=== PATIENT | male | born 1960 | race Caucasian/White ===

== ENCOUNTER 2020-03-13 09:22 | Observation (INO) | payer BC, OTHER ==
[2020-02-29 12:01] LABS: BASOPHILS # (AUTO) 0.1 (0.0-0.1); BASOPHILS % 0.4 % (0.0-1.0); EOSINOPHILS # (AUTO) 0.1 (0.0-0.4); EOSINOPHILS % 0.8 % (0.0-6.0); HEMATOCRIT 43.1 % (38.2-49.6); HEMOGLOBIN 13.8 g/dL (14.0-18.0); LYMPHOCYTES # (AUTO) 1.4 (1.0-3.2); LYMPHOCYTES % 11.5 % (18.0-39.1); MEAN CORPUSCULAR HEMOGLOBIN 28.8 pg (28-32); MEAN CORPUSCULAR VOLUME 89.8 fL (81-99); MONOCYTES # (AUTO) 1.3 (0.2-0.8); MONOCYTES % 10.3 % (4.4-11.3); NEUTROPHILS # (AUTO) 9.4 (2.1-6.9); NEUTROPHILS % 76.6 % (38.7-80.0); PLATELET COUNT 290 x10e3/uL (140-360); RED CELL DISTRIBUTION WIDTH 13.1 % (11.7-14.4)
[2020-02-29 12:24] LABS: PARTIAL THROMBOPLASTIN TIME 34.7 seconds (23.8-35.5)
[2020-02-29 12:29] LABS: INR 1.22; PROTHROMBIN TIME 16.1 seconds (11.9-14.5)
[2020-02-29 12:31] LABS: ANION GAP 16.9 mmol/L (8-16); BLOOD UREA NITROGEN 23 mg/dL (7-26); BUN/CREATININE RATIO 21 (6-25); CALCIUM 9.6 mg/dL (8.4-10.2); CARBON DIOXIDE 25 mmol/L (22-29); CHLORIDE 102 mmol/L (98-107); CREATININE, SERUM 1.08 mg/dL (0.72-1.25); EST GLOMERULAR FILTRATION RATE > 60 ML/MIN (60-); GLUCOSE 90 mg/dL (74-118); POTASSIUM 3.9 mmol/L (3.5-5.1); SODIUM 140 mmol/L (136-145)
--- NOTE | 2020-02-29 12:44 | Diagnostic Imaging Report ---
EXAMINATION: CHEST 2 VIEWS INDICATION: Pre-operative COMPARISON: None FINDINGS: LINES/TUBES:Right and left subclavian vascular stents. LUNGS:The lungs are well-inflated. Left lower lung hazy and interstitial opacities. PLEURA:Moderate left layering pleural effusion. MEDIASTINUM:The cardiomediastinal silhouette appears normal in size and shape. Atherosclerotic calcifications of the thoracic aorta. BONES/SOFT TISSUES:No acute osseous injury. Sternotomy wires in place. ABDOMEN:No free air under the diaphragm. IMPRESSION: Layering left pleural effusion. Left lower lung patchy opacities may represent subsegmental atelectasis however superimposed pneumonia could also have this appearance and should be excluded clinically. Signed by: Donnell Berger MD on 02/29/2020 12:41 PM
[2020-03-04 09:53] LABS: PARTIAL THROMBOPLASTIN TIME 35.6 seconds (23.8-35.5)
--- NOTE | 2020-03-04 10:17 | Diagnostic Imaging Report ---
EXAMINATION: CHEST 2 VIEWS INDICATION: Pre-operative COMPARISON: Chest are graft a 30/07/2019 FINDINGS: LINES/TUBES:Right and left subclavian vascular stents. LUNGS:The lungs are well-inflated. Unchanged left lower lung hazy and interstitial opacities. PLEURA:Unchanged left layering pleural effusion. MEDIASTINUM:The cardiomediastinal silhouette appears normal in size and shape. Atherosclerotic calcifications of the thoracic aorta. BONES/SOFT TISSUES:No acute osseous injury. Sternotomy wires in place. ABDOMEN:No free air under the diaphragm. IMPRESSION: Unchanged layering left pleural effusion and left lower lung patchy opacities may represent subsegmental atelectasis however superimposed pneumonia could also have this appearance and should be excluded clinically. Signed by: Donnell Berger MD on 03/04/2020 10:14 AM
[2020-03-04 10:41] LABS: INR 1.02; PROTHROMBIN TIME 13.9 seconds (11.9-14.5)
[~2020-03-13] VITALS: Ht 177.8 cm; Wt 88.9 kg
[~2020-03-13 09:22] MED LIST: ASPIRIN81 MG PO; CRESTOR10 MG PO; ELIQUIS5 MG PO; IBUPROFEN 800MG/ 200ML 200 ML IV ONE; LIDOCAINE HCL (LTA) 4 ML SOLN ONE; OLMESARTAN-HCT1 EAC2 PO; PROTONIX20 MG PO; PROZAC20 MG PO; TRAZODONE HCL50 MG PO
[2020-03-13] MEDS ORDERED: VANCOMYCIN HCL 1 GM VIAL ONE (09:50)
[2020-03-13] MEDS ORDERED: BUPIVACAINE 0.5%/EPI 30 ML SDV INJ ONE (09:50)
[2020-03-13] MEDS ORDERED: THROMBIN FOR SOLN 5,000 UNIT VIAL ONE (09:50)
[2020-03-13] MEDS ORDERED: CEFAZOLIN SOD 1 GM/NS 50ML 100 ML IV ONE (10:58)
[2020-03-13] MEDS ORDERED: SUGAMMADEX SODIUM 200 MG/2 ML VIAL IV ONE (12:38)
[2020-03-13] MEDS ORDERED: HYDROMORPHONE 2MG/ML 2 MG/ML ML IV PRN (13:00)
[2020-03-13] MEDS ORDERED: MORPHINE SULFATE INJ 4 MG/ML INJ 1ML IM PRN (13:00)
[2020-03-13] MEDS ORDERED: ACETAMINOPHEN 325 MG TAB PO PRN (13:00)
[2020-03-13] MEDS ORDERED: MAGNESIUM/ALUMINUM/SIMETHICONE 30 ML UDC PO PRN (13:00)
[2020-03-13] MEDS ORDERED: PROMETHAZINE HCL (IM) 25 MG/ML VIAL IM PRN (13:00)
[2020-03-13] MEDS ORDERED: ONDANSETRON HCL INJ 2MG/ML 2ML 2 MG/ML VIAL IV PRN (13:00)
[2020-03-13] MEDS ORDERED: OXYCODONE/ACETAMINOPHEN 5-325 1 EACH TABLET PO PRN (13:00)
[2020-03-13] MEDS ORDERED: CARISOPRODOL 350 MG TAB PO PRN (13:00)
[2020-03-13] MEDS ORDERED: MIDAZOLAM HCL 2 MG/2 ML VIAL ONE (14:40)
[2020-03-13] MEDS ORDERED: FENTANYL CITRATE/PF 100MCG/2 ML INJ ONE (14:40)
[2020-03-13] MEDS ORDERED: LACTATED RINGER'S 1,000 ML IV SCH (15:00)
[2020-03-13 15:35] VITALS: BP 106/78
[2020-03-13 17:17] VITALS: BP 136/71
[2020-03-13] MEDS ORDERED: SODIUM CHLORIDE 0.9% 250ML 250 ML ONE (17:25)
[2020-03-13] MEDS: CEFAZOLIN SOD 1 GM/NS 50ML 50 ML IV SCH (17:27)
--- NOTE | 2020-03-13 17:55 | Operative Report ---
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 PROCEDURE: Left L5-S1 laminotomy, medial facetectomy, lateral recess decompression, microsurgical resection of disk osteophyte complex, [id number]. ANESTHESIA: General. INDICATIONS: The patient is a 60-year-old man who presents with a chronic left S1 radiculopathy and unilateral neurogenic claudication. 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 He was taken to surgery for decompression of the S1 nerve root. PROCEDURE IN DETAIL: After induction of general anesthesia, the patient was placed on the operating table in prone position over Taj frame. Lumbar region was prepped and draped in sterile fashion. A preoperative x-ray was obtained. A small midline incision was created. Lumbar fascia was opened to the left of midline and a subperiosteal dissection was carried out to expose the left side of the L5 and S1 lamina and the medial aspect of the L5-S1 facet joint. A second x-ray confirmed correct localization. The operating microscope was brought in. A high-speed drill equipped with real bur was used to drill the inferior aspect of the lamina of L5 and the superior rim of the lamina of S1 and the medial rim of the L5-S1 hypertrophic facet joint. The hypertrophic ligamentum flavum was resected and the left side of the dural sac and the S1 nerve root were exposed. The epidural veins lateral to the nerve root were bipolar coagulated and divided with micro-scissors. Nerve root was carefully retracted medially. The underlying hard disk herniation and osteophyte emerging from the inferior endplate of L5 came into view, markedly compressing the undersurface of the S1 nerve root. The soft portion of the disk was incised with a #11 blade, getting access to the disk space. A small reverse angle curette was then used to carefully fracture the osteophyte back into the disk space from where the pieces of bone removed with a micropituitary instrument. As this maneuver was repeated several times, proceeding from laterally to medially, affective resection of the osteophyte was achieved and the nerve root was circumferentially decompressed. The loose contents of the L5-S1 disk were then evacuated with curettes and pituitary instruments. Meticulous hemostasis was secured. The retractor was removed. The lumbar fascia was closed with 0 Vicryl suture. Subcutaneous layer was closed with 2-0 Vicryl sutures. The skin was closed with 3-0 Monocryl sutures in subcuticular fashion. Steri-Strips and dressing were applied. The patient was awakened, extubated, and taken to postanesthesia care unit in stable condition. No intraoperative complications were encountered. ESTIMATED BLOOD LOSS: 10 mL. Ramón Smith MD PP/MODL /[id number]
--- NOTE | 2020-03-13 19:00 | NUR ---
Resumed care of patient. Patient awake and resting in bed, vital signs stable, no s/s of distress at this time. Bed locked and in lowest position, side rails upx3, call light placed within reach. Patient instructed to call for assistance if needed, verbalized understanding. All safety measures in place.
[2020-03-13] MEDS ORDERED: LIDOCAINE HCL 2% LOCAL INJ 5 ML SDV VIAL INJ ONE (19:59)
[2020-03-13] MEDS ORDERED: ONDANSETRON HCL INJ 2MG/ML 2ML 2 MG/ML VIAL ONE (19:59)
[2020-03-13] MEDS ORDERED: SEVOFLURANE INHAL SOLN 250 ML PEN BTL ONE (19:59)
[2020-03-13] MEDS ORDERED: PROPOFOL IV EMULSION 10 MG/ML 20 ML VIAL ONE (19:59)
[2020-03-13] MEDS ORDERED: DEXAMETHASONE SOD PHOS INJ 4 MG/ML VIAL ONE (19:59)
[2020-03-13] MEDS ORDERED: ROCURONIUM BROMIDE 10 MG/ML 5ML VIAL IV ONE (19:59)
[2020-03-13 20:00] VITALS: BP 117/78
[2020-03-13] MEDS ORDERED: ZOLPIDEM TARTRATE 5 MG TAB PO PRN (21:00)
[2020-03-13] MEDS ORDERED: HYDROCHLOROTHIAZIDE 25 MG TAB PO SCH (21:00)
[2020-03-13] MEDS ORDERED: OLMESARTAN 20 MG TAB PO SCH (21:00)
[2020-03-13 21:04] VITALS: BP 117/78
[2020-03-13] MEDS ORDERED: NORCO 7.5-3251 EACH PO (22:35)
[2020-03-14] VITALS: BP 111/56
[2020-03-14] MEDS: CEFAZOLIN SOD 1 GM/NS 50ML 50 ML IV SCH ×2 (02:08→09:37)
[2020-03-14 04:00] VITALS: BP 110/55
--- NOTE | 2020-03-14 07:00 | NUR ---
RCD PT AT BED PT IS ALERT AND ORIENTED RESTING ON BED IV PATENT BED LOW AND LOCKED CALL LIGHT IN REACH
--- NOTE | 2020-03-14 07:01 | NUR ---
Bedside report given to oncoming nurse. Patient awake and resting in bed, no s/s of distress at this time.
[2020-03-14 08:00] VITALS: BP 124/61
[2020-03-14 08:55] VITALS: BP 124/61
[2020-03-14] MEDS ORDERED: PANTOPRAZOLE SOD 40 MG TABEC PO SCH (09:00)
[2020-03-14] MEDS ORDERED: FLUOXETINE HCL 20 MG CAP PO SCH (09:00)
--- NOTE | 2020-03-14 09:49 | Diagnostic Imaging Report ---
EXAMINATION: Intraoperative lumbar spine radiographs-1 view CLINICAL HISTORY: X-ray in OR for surgical level COMPARISON: None. DISCUSSION: Examination is limited by portable technique with single intraoperative cross table view of the lumbar spine. Linear metallic surgical marker overlies the lumbar spine at the level of L5-S1. No acute osseous abnormality given exam limitations. Lumbar lordosis without significant spondylolisthesis or subluxation. Multilevel degenerative disc changes, greatest at L5-S1. Vascular stent overlying the anterior aspect of the inferior lumbar spine. IMPRESSION: 1. Limited intraoperative radiograph with linear metallic surgical marker at the level of L5-S1. Signed by: Dr. Manas Jaramillo M.D. on 03/14/2020 9:46 AM
--- NOTE | 2020-03-14 09:51 | Diagnostic Imaging Report ---
EXAMINATION: Intraoperative lumbar spine radiographs-1 view CLINICAL HISTORY: X-ray in OR for surgical level COMPARISON: Intraoperative lumbar spine radiographs performed earlier on the same day (03/13/2020). DISCUSSION: Examination is limited by portable technique with single intraoperative cross table view of the lumbar spine. Metallic surgical hardware overlies the posterior soft tissues at the level of L5-S1. No acute osseous abnormality given exam limitations. Lumbar lordosis without significant spondylolisthesis or subluxation. Multilevel degenerative disc changes, greatest at L5-S1. Vascular stent overlying the anterior aspect of the inferior lumbar spine. IMPRESSION: 1. Limited intraoperative radiograph with metallic surgical hardware overlying the posterior soft tissues at the level of L5-S1. Signed by: Dr. Manas Jaramillo M.D. on 03/14/2020 9:47 AM
--- NOTE | 2020-03-14 10:25 | NUR ---
PT WENT HOME IN SAFE CONDITION WITH HIS
[2020-03-14] MEDS ORDERED: TRAZODONE HCL 50 MG TAB PO SCH (21:00)
[2020-03-14] MEDS ORDERED: SIMVASTATIN 40 MG TAB PO SCH (21:00)
== END 2020-03-14 10:27 | disposition home or self-care (01) ==
LOC: OR 09:22 → PACU V 12:50 → MED/SURG 14:41
PROVIDERS: ADMIT Neurological Surgery; ATTEND Neurological Surgery
DX: M48.07 Spinal stenosis, lumbosacral region (principal); M48.062 Spinal stenosis, lumbar region with neurogenic claudication; M47.896 Other spondylosis, lumbar region; J44.9 Chronic obstructive pulmonary disease, unspecified; I25.10 Atherosclerotic heart disease of native coronary artery without angina pectoris; I10 Essential (primary) hypertension; Z86.73 Personal history of transient ischemic attack (TIA), and cerebral infarction without residual deficits; Z95.1 Presence of aortocoronary bypass graft; Z95.820 Peripheral vascular angioplasty status with implants and grafts; Z87.891 Personal history of nicotine dependence; Z01.812 Encounter for preprocedural laboratory examination; Z01.818 Encounter for other preprocedural examination; Z11.59 Encounter for screening for other viral diseases
CPT/HCPCS: 36415 ×2; 63047; 71046 ×2; 72020; 80048; 85025; 85610 ×2; 85730 ×2; 86850; 86900; 88304; 88311; G0378 ×2; J0690 ×2; J1100; J2001; J2250; J2270; J2405; J2704; J3010; J3370; J7050; S0164; U0002 ×2